=== PATIENT | female | born 1995 | race American Indian/Alaskan Native ===

== ENCOUNTER 2016-12-21 19:33 | Outpatient (CLI) | payer MEDICAID, OTHER ==
[2016-12-21 21:30] VITALS: BP 121/70
[2016-12-22 00:12] LABS: Bacteria,Urine 2+ /HPF (Negative); Bilirubin,Urine NEG (Negative); Blood,Urine NEG (Negative); Ketones,Urine NEG (Negative); Leukocyte Esterase,Urine LG (Negative); Mucus,Urine 3+ /HPF; Nitrite,Urine NEG (Negative); Urobilinogen,Urine < 2.0 mg/dL (<2.0)
== END 2016-12-21 23:04 | disposition home or self-care (01) ==
LOC: EDSTATUS 21:08 → TRG 21:12
PROVIDERS: ATTEND Obstetrics & Gynecology
DX: O26.892 Other specified pregnancy related conditions, second trimester (principal); R11.0 Nausea; R25.2 Cramp and spasm; Z3A.22 22 weeks gestation of pregnancy
CPT/HCPCS: 81001

== ENCOUNTER 2020-07-02 13:11 | Observation (INO) | payer MEDICAID ==
[2020-07-02] MEDS ORDERED: DOCUSATE SODIUM 100 MG CAP PO PRN (14:24)
[2020-07-02] MEDS ORDERED: diphenhydrAMINE 25 MG CAP PO PRN (14:24)
[2020-07-02] MEDS ORDERED: ALUM-MAG HYDROXIDE-SIMETHICONE 200-200-20MG/5ML ORAL LIQD 30 ML PO PRN (14:24)
[2020-07-02] MEDS ORDERED: ACETAMINOPHEN 325 MG TAB PO PRN (14:24)
--- NOTE | 2020-07-02 14:24 | History and Physical Report ---
History of Present Illness Date of examination: 07/02/20 (Sent by [facility] d/t kumar, 33 wks twins) Date of admission: 07/02/2020 Chief complaint: Was sent by [facility] elvi/t kumar q 2 minutes during office visit. Twins, twin B severe IUGR History of present illness: Pt was having contractions every 2 minutes in at her [facility] visit. She was sent for steroids and fluids. Past History : 3 Term Births: 1 Premature Births: 0 Living Children: 1 Para: 1 Mult. Births: 0 Prev : 0 Prev. attempt? 0 Aborta: 1 Elect. Ab: 1 Spont. 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 of genital herpes: no Partner hx. of genital herpes: no Rash, Viral, or Febrile illness since last LMP? no Varicella/Chicken Pox Status: Immunized Genetic History Congenital Heart Defect: Mom: no Dad: no Tiffani Disease: Mom: no Dad: no Thalassemia Mom: no Dad: no Neural Tube Defect Mom: no Dad: no Down's Syndrome Mom: no Dad: no Praful-Sachs Mom: no Dad: no Sickle Cell Disease/Trait Mom: no Dad: no Hemophilia Mom: no Dad: no Muscular Dystrophy Mom: no Dad: no Cystic Fibrosis Mom: no Dad: no Owsley Chorea Mom: no Dad: no Mental Retardation Mom: no Dad: no Fragile X Mom: no Dad: no Other Genetic/Chromosomal Disorder Mom: no Dad: no Child w/other defect Mom: no Dad: no Enviromental Exposures Xray Exposure: no Medication, drug, or alcohol use since LMP: no Chemical/Other Exposure: no Exposure to Cat Liter: no Hx of Parvovirus (Fifth Disease): no Occupational Exposure to Children: none Active Medications (reviewed today): None Current Allergies (reviewed today): No known allergies Past History Past Medical History: no pertinent history Past Surgical History: other (Hernia repair as a child.) Family/Genetic History: none Social history: no significant social history - Obstetrical History Expected Date of Delivery: 08/15/20 Actual Gestation: 33 Week(s) 5 Day(s) : 3 Para: 1 Hx # Term Pregnancies: 1 Number of Pregnancies: 0 Spontaneous Abortions: 0 Induced : 1 Number of Living Children: 1 Medications and Allergies Allergies Allergy/AdvReac Type Severity Reaction Status Date / Time No Known Allergies Allergy Unverified 07/02/20 14:31 Home Medications Medication Instructions Recorded Confirmed Last Taken Type Fluconazole [Diflucan TAB] 150 mg PO ONCE #3 tablet 02/18/14 12/21/16 Unknown Rx metroNIDAZOLE [Flagyl] 500 mg PO BID #14 tablet 02/18/14 12/21/16 Unknown Rx Doxylamine Succinate/Vit B6 1 each PO BID #30 tablet. 01/30/20 Unknown Rx [Dania Calderon 10-10 mg Tablet] Nitrofurantoin [place]/M-Cryst 100 mg PO Q12HR #14 capsule 01/30/20 Unknown Rx [Macrobid CAP] Review of Systems All systems: negative - Vital Signs Vital signs: Vital Signs Pulse BP 73 118/58 07/02/20 14:18 07/02/20 14:18 Temp Pulse Resp BP Pulse Ox 69 118/58 99 07/02/20 14:19 07/02/20 14:18 07/02/20 14:19 - Physical Exam Breasts: Positive: deferred Cardiovascular: Regular rate Lungs: Positive: Normal air movement Abdomen: Positive: normal appearance, soft Genitourinary (Female): Positive: normal external genitalia, normal perenium Vulva: both: normal Vagina: Positive: normal moisture. Negative: discharge Cervix: Negative: lesion, discharge Uterus: Positive: normal size, normal contour Adnexa: both: normal Anus/Rectum: Positive: normal perianal skin, heme negative. Negative: rectal mass, hemorrhoids Extremities: Positive: normal Deep Tendon Reflex Grade: Normal +2 - Obstetrical FHR: category 1 (X 2) Uterine Contraction Monitor Mode: External Cervical Dilatation: 0.5 Cervical Effacement Percentage: 50 station: -3 Uterine Contraction Pattern: Irregular Uterine Tone Measurement Phase: Resting Uterine Contraction Intensity: Mild Results Result Diagrams: 07/02/20 15:09 All other labs normal. GBS UNKNOWN HBsAg Screen Negative Negative *1 RPR Non Reactive Non Reactive *2 Rubella Antibodies, IgG 2.12 index Immune >0.99 *3 Non-immune <0.90 Equivocal 0.90 - 0.99 Immune >0.99 ABO Grouping A *4 Rh Factor Positive *5 Please note: Prior records for this patient's ABO / Rh type are not available for additional verification. Antibody Screen Negative Negative *6 Tests: (2) HIV Ag/Ab with Reflex ([id number]) HIV Screen 4th Generation wRfx Non Reactive Non Reactive *31 Tests: (3) HCV Ab w/Rflx to Verification ([id number]) ! HCV Ab <0.1 s/co ratio 0.0-0.9 *32 Tests: (4) Comment: ([id number]) ! Comment: SPRCS *33 Non reactive HCV antibody screen is consistent with no HCV infection, unless recent infection is suspected or other evidence exists to indicate HCV infection. Assessment and Plan A: 24 y.o. @ 33 + weeks, twins, ctxs. Cervical exam FT/50/-3, soft. P: Admit to labor and delivery for observation. IV fluids. Steroids. - Patient Problems (1) labor in third trimester Onset Date: ~07/02/20 Current Visit: Yes Status: Acute Qualifiers: labor delivery status: without delivery Qualified Code(s): O60.03 - labor without delivery, third trimester Plan to address problem: IV fluids, steroids. (2) with 26 to 33 completed weeks gestation Onset Date: ~07/02/20 Current Visit: Yes Status: Acute Plan to address problem: IV fluids, steroids per AMF. (3) Antepartum twin Onset Date: ~07/02/20 Current Visit: Yes Status: Acute Qualifiers: Multiple gestation type: dichorionic and diamniotic Qualified Code(s): O30.049 - Twin , dichorionic/diamniotic, unspecified trimester Plan to address problem: EFM to monitor status.
[2020-07-02] MEDS: LACTATED RINGERS 1,000 ML IV SCH ×3 (14:54→23:16)
[2020-07-02] MEDS: BETAMET ACET/BETAMET NA PH 6 MG/ML INJ 5 ML MDV IM SCH (15:18)
[2020-07-02 15:54] LABS: Basophils % (Auto) 0.2 % (0.0-1.8); Eosinophils # (Auto) 0.1 K/mm3 (0.0-0.4); Eosinophils % (Auto) 1.5 % (0.0-4.3); Hematocrit 33.3 % (30.3-42.9); Lymphocytes # (Auto) 1.5 K/mm3 (1.2-5.4); Lymphocytes % (Auto) 17.5 % (13.4-35.0); Mean Corpuscular HGB Conc 33 % (30-34); Mean Corpuscular Volume 82 fl (79-97); Monocytes % (Auto) 11.2 % (0.0-7.3); Platelet Count 179 K/mm3 (140-440); Red Blood Count 4.05 M/mm3 (3.65-5.03); Red Cell Distribution Width 14.7 % (13.2-15.2)
[2020-07-02] MEDS ORDERED: TERBUTALINE 1 MG/1 ML INJ SUB-Q ONE (17:19)
[2020-07-02] MEDS ORDERED: TERBUTALINE 1 MG/1 ML INJ ONE (17:20)
--- NOTE | 2020-07-02 17:23 | Event Note ---
Date: 07/02/20 (Pt feeling ctxs.) Pt states that she is feeling ctxs. Irregular ctxs noted on monitor. Will order terb X1.
--- NOTE | 2020-07-02 20:21 | Progress Note ---
Assessment and Plan - Patient Problems (1) 33 weeks gestation of Current Visit: Yes Status: Acute (2) Antepartum twin Onset Date: ~07/02/20 Current Visit: Yes Status: Acute Qualifiers: Multiple gestation type: dichorionic and diamniotic Qualified Code(s): O30.049 - Twin , dichorionic/diamniotic, unspecified trimester Plan to address problem: Vtx/ breech per AMFM US from today Will attempt to obtain report tomorrow Consult [facility] ordered Discussed possible c/s with patient if Twin B remains breech. (3) labor in third trimester Onset Date: ~07/02/20 Current Visit: Yes Status: Acute Qualifiers: labor delivery status: without delivery Qualified Code(s): O60.03 - labor without delivery, third trimester Plan to address problem: Patient continues to complain of contractions, will start Procardia for tocolysis. (The overall evidence suggests that when tocolysis is used for short- term prolongation, calcium channel blockers or nonsteroidal antiinflammatory drugs should be first-line treatment (Multifetal Gestations: Twin, Triplet, and Higher-Order Multifetal Pregnancies, Practice Bulletin, Number 169, May 2016) GBS obtained She's received the first dose of Celestone at 1515 today, 2nd dose scheduled for tomorrow. (4) IUGR (intrauterine growth restriction) Current Visit: Yes Status: Acute Plan to address problem: Continuous monitoring Subjective - Subjective Date of service: 07/02/20 Principal diagnosis: IUP@33 5/7weeks Twins di/di IUGRx2, PTC Patient reports: movement normal, contractions, no loss of fluid, no vaginal bleeding Objective - Vital Signs Vital Signs: Vital Signs - 12hr 07/02/20 07/02/20 07/02/20 14:18 14:19 14:24 Temperature Pulse Rate 73 69 77 Blood Pressure 118/58 O2 Sat by Pulse 99 99 Oximetry 07/02/20 07/02/20 07/02/20 14:29 14:34 14:39 Temperature Pulse Rate 72 73 74 Blood Pressure O2 Sat by Pulse 99 100 99 Oximetry 07/02/20 07/02/20 07/02/20 14:44 14:45 14:49 Temperature 99.1 F Pulse Rate 75 77 Blood Pressure O2 Sat by Pulse 99 100 Oximetry 07/02/20 07/02/20 07/02/20 14:54 15:00 15:05 Temperature Pulse Rate 85 82 74 Blood Pressure O2 Sat by Pulse 100 99 100 Oximetry 07/02/20 07/02/20 07/02/20 15:10 15:15 15:20 Temperature Pulse Rate 84 86 79 Blood Pressure O2 Sat by Pulse 99 99 99 Oximetry 07/02/20 07/02/20 07/02/20 15:25 15:30 15:35 Temperature Pulse Rate 76 82 78 Blood Pressure O2 Sat by Pulse 100 100 100 Oximetry 07/02/20 07/02/20 07/02/20 15:40 15:45 15:50 Temperature Pulse Rate 79 71 88 Blood Pressure O2 Sat by Pulse 99 99 100 Oximetry 07/02/20 07/02/20 07/02/20 15:55 16:00 16:05 Temperature Pulse Rate 84 70 81 Blood Pressure O2 Sat by Pulse 98 100 99 Oximetry 07/02/20 07/02/20 07/02/20 16:10 16:15 16:20 Temperature Pulse Rate 78 79 69 Blood Pressure O2 Sat by Pulse 99 100 100 Oximetry 07/02/20 07/02/20 07/02/20 16:25 16:30 16:35 Temperature Pulse Rate 90 77 82 Blood Pressure O2 Sat by Pulse 100 100 100 Oximetry 07/02/20 07/02/20 07/02/20 16:40 16:45 16:50 Temperature Pulse Rate 78 83 80 Blood Pressure O2 Sat by Pulse 100 99 99 Oximetry 07/02/20 07/02/20 07/02/20 16:55 17:00 17:05 Temperature Pulse Rate 81 82 96 H Blood Pressure O2 Sat by Pulse 99 99 99 Oximetry 07/02/20 07/02/20 07/02/20 17:10 17:15 17:20 Temperature Pulse Rate 105 H 85 83 Blood Pressure O2 Sat by Pulse 99 100 99 Oximetry 07/02/20 07/02/20 07/02/20 17:25 17:30 17:35 Temperature Pulse Rate 74 94 H 113 H Blood Pressure O2 Sat by Pulse 100 99 99 Oximetry 07/02/20 07/02/20 07/02/20 17:40 17:45 17:50 Temperature Pulse Rate 107 H 121 H 109 H Blood Pressure O2 Sat by Pulse 99 99 99 Oximetry 07/02/20 07/02/20 07/02/20 17:55 18:00 18:05 Temperature Pulse Rate 120 H 112 H 110 H Blood Pressure O2 Sat by Pulse 100 99 98 Oximetry 07/02/20 07/02/20 07/02/20 18:10 18:15 18:20 Temperature Pulse Rate 113 H 103 H 111 H Blood Pressure O2 Sat by Pulse 99 100 100 Oximetry 07/02/20 07/02/20 07/02/20 18:25 18:30 18:35 Temperature Pulse Rate 112 H 108 H 93 H Blood Pressure O2 Sat by Pulse 99 99 100 Oximetry 07/02/20 07/02/20 07/02/20 18:40 18:45 18:50 Temperature Pulse Rate 101 H 96 H 93 H Blood Pressure O2 Sat by Pulse 100 100 99 Oximetry 07/02/20 07/02/20 07/02/20 18:55 19:00 19:05 Temperature Pulse Rate 95 H 94 H 99 H Blood Pressure O2 Sat by Pulse 99 99 99 Oximetry 07/02/20 07/02/20 07/02/20 19:10 19:15 19:19 Temperature Pulse Rate 103 H 97 H 91 H Blood Pressure 124/69 O2 Sat by Pulse 99 100 Oximetry 07/02/20 07/02/20 07/02/20 19:20 19:25 19:30 Temperature Pulse Rate 105 H 97 H 108 H Blood Pressure O2 Sat by Pulse 99 100 99 Oximetry 07/02/20 07/02/20 07/02/20 19:35 19:40 20:02 Temperature Pulse Rate 86 89 92 H Blood Pressure O2 Sat by Pulse 100 99 100 Oximetry 07/02/20 07/02/20 20:07 20:12 Temperature Pulse Rate 86 84 Blood Pressure O2 Sat by Pulse 98 99 Oximetry - Exam Breasts: deferred Cardiovascular: Regular rate Lungs: Normal air movement Abdomen: Present: soft. Absent: tenderness Vulva: both: normal Uterus: Present: fundal height above umbilicus FHR: category 1 (x2) Uterine Contraction Monitor Mode: External Cervical Dilatation: 0.5 Cervical Effacement Percentage: 25 station: -3 Uterine Contraction Pattern: Irregular Extremities: normal - Labs Labs: Abnormal Labs 07/02/20 15:09 MCH 27 L [place] % (Auto) 11.2 H [place] # (Auto) 1.0 H Laboratory Results - last 24 hr 07/02/20 07/02/20 07/02/20 15:09 15:09 15:09 WBC 8.8 RBC 4.05 Hgb 11.0 Hct 33.3 MCV 82 MCH 27 L MCHC 33 RDW 14.7 Plt Count 179 Lymph % (Auto) 17.5 [place] % (Auto) 11.2 H Eos % (Auto) 1.5 Baso % (Auto) 0.2 Lymph # (Auto) 1.5 [place] # (Auto) 1.0 H Eos # (Auto) 0.1 Baso # (Auto) 0.0 Seg Neutrophils % 69.6 Seg Neutrophils # 6.1 Syphilis IgG Antibody Nonreactive Blood Type A POSITIVE Antibody Screen Negative
[2020-07-02] MEDS ORDERED: NIFEdipine*For Tocolysis only* 10 MG CAPSULE PO ONE (21:12)
[2020-07-03] MEDS: NIFEdipine*For Tocolysis only* 10 MG CAPSULE PO SCH ×2 (02:11→11:42)
[2020-07-03] MEDS ORDERED: PRENATAL VIT27-FE FUMARATE-FOLIC ACID VIT TAB PO SCH (10:00)
--- NOTE | 2020-07-03 10:26 | Progress Note ---
Assessment and Plan - Patient Problems (1) uterine contractions in third trimester, antepartum Current Visit: Yes Status: Acute Plan to address problem: -contractions seemed to have resolved. Pt desires d/c hoem -will await recommendations by MF and plan for d/c home today. (2) 33 weeks gestation of Current Visit: Yes Status: Acute (3) Antepartum twin Onset Date: ~07/02/20 Current Visit: Yes Status: Acute Qualifiers: Multiple gestation type: dichorionic and diamniotic Qualified Code(s): O30.049 - Twin , dichorionic/diamniotic, unspecified trimester (4) IUGR (intrauterine growth restriction) Current Visit: Yes Status: Acute Subjective - Subjective Date of service: 07/03/20 Principal diagnosis: IUP@33 6/7weeks Twins di/di IUGRx2, PTC Interval history: Pt doing well this am and looking foward to going home. states she no longer is having pain. I d/w that she will have follow up with MFM and get her second does of BMZ at 1500pm prior to d/c to home. She expressed understanding and agrees with plan of care. Pt has been on procardia which has helped with her contractions. I d/w that she may be d/c home on this medication pending recommendations by MFM. Pt expressed understanding and agrees with plan of care. Patient reports: movement normal, contractions, no loss of fluid, no vaginal bleeding Objective - Vital Signs Vital Signs: Vital Signs - 12hr 07/02/20 07/02/20 07/02/20 22:22 22:27 22:32 Temperature Pulse Rate 110 H 114 H 114 H Respiratory Rate Blood Pressure O2 Sat by Pulse 100 100 100 Oximetry 07/02/20 07/02/20 07/02/20 22:37 22:42 22:47 Temperature Pulse Rate 109 H 111 H 105 H Respiratory Rate Blood Pressure O2 Sat by Pulse 99 100 99 Oximetry 07/02/20 07/02/20 07/02/20 22:52 22:57 23:02 Temperature Pulse Rate 102 H 96 H 103 H Respiratory Rate Blood Pressure O2 Sat by Pulse 99 99 100 Oximetry 07/02/20 07/02/20 07/02/20 23:07 23:12 23:17 Temperature Pulse Rate 101 H 101 H 98 H Respiratory Rate Blood Pressure O2 Sat by Pulse 100 99 99 Oximetry 07/02/20 07/02/20 07/02/20 23:22 23:27 23:32 Temperature Pulse Rate 93 H 92 H 91 H Respiratory Rate Blood Pressure O2 Sat by Pulse 99 99 100 Oximetry 07/02/20 07/02/20 07/02/20 23:37 23:53 23:58 Temperature Pulse Rate 96 H 64 106 H Respiratory Rate Blood Pressure O2 Sat by Pulse 99 92 99 Oximetry 07/03/20 07/03/20 07/03/20 00:03 00:08 00:13 Temperature Pulse Rate 105 H 104 H 99 H Respiratory Rate Blood Pressure O2 Sat by Pulse 99 98 99 Oximetry 07/03/20 07/03/20 07/03/20 00:18 00:23 00:28 Temperature Pulse Rate 101 H 97 H 101 H Respiratory Rate Blood Pressure O2 Sat by Pulse 99 99 99 Oximetry 07/03/20 07/03/20 07/03/20 00:33 00:38 00:43 Temperature Pulse Rate 100 H 94 H 87 Respiratory Rate Blood Pressure O2 Sat by Pulse 98 98 98 Oximetry 07/03/20 07/03/20 07/03/20 00:48 00:53 00:58 Temperature Pulse Rate 95 H 104 H 109 H Respiratory Rate Blood Pressure O2 Sat by Pulse 98 98 99 Oximetry 07/03/20 07/03/20 07/03/20 01:03 01:08 02:13 Temperature Pulse Rate 92 H 94 H 80 Respiratory Rate Blood Pressure O2 Sat by Pulse 98 98 100 Oximetry 07/03/20 07/03/20 07/03/20 02:18 02:23 02:28 Temperature Pulse Rate 82 91 H 86 Respiratory Rate Blood Pressure O2 Sat by Pulse 97 97 97 Oximetry 07/03/20 07/03/20 07/03/20 02:33 02:38 02:43 Temperature Pulse Rate 78 89 89 Respiratory Rate Blood Pressure O2 Sat by Pulse 97 98 97 Oximetry 07/03/20 07/03/20 07/03/20 02:48 02:53 02:58 Temperature Pulse Rate 80 75 95 H Respiratory Rate Blood Pressure O2 Sat by Pulse 97 98 99 Oximetry 07/03/20 07/03/20 07/03/20 03:03 03:08 03:13 Temperature Pulse Rate 93 H 89 86 Respiratory Rate Blood Pressure O2 Sat by Pulse 98 98 99 Oximetry 07/03/20 07/03/20 07/03/20 03:18 03:23 03:28 Temperature Pulse Rate 70 67 84 Respiratory Rate Blood Pressure O2 Sat by Pulse 98 99 98 Oximetry 07/03/20 07/03/20 07/03/20 03:33 03:38 03:43 Temperature Pulse Rate 83 82 83 Respiratory Rate Blood Pressure O2 Sat by Pulse 97 98 98 Oximetry 07/03/20 07/03/20 07/03/20 03:48 03:53 03:58 Temperature Pulse Rate 86 84 88 Respiratory Rate Blood Pressure O2 Sat by Pulse 97 99 99 Oximetry 07/03/20 07/03/20 07/03/20 04:03 04:08 04:13 Temperature Pulse Rate 98 H 75 78 Respiratory Rate Blood Pressure O2 Sat by Pulse 98 98 98 Oximetry 07/03/20 07/03/20 07/03/20 04:18 04:23 04:28 Temperature Pulse Rate 74 73 67 Respiratory Rate Blood Pressure O2 Sat by Pulse 98 100 99 Oximetry 07/03/20 07/03/20 07/03/20 04:33 04:38 04:43 Temperature Pulse Rate 82 76 73 Respiratory Rate Blood Pressure O2 Sat by Pulse 99 98 98 Oximetry 07/03/20 07/03/20 07/03/20 04:48 04:53 04:58 Temperature Pulse Rate 64 81 67 Respiratory Rate Blood Pressure O2 Sat by Pulse 99 99 99 Oximetry 07/03/20 07/03/20 07/03/20 06:56 07:01 07:06 Temperature Pulse Rate 101 H 124 H 85 Respiratory Rate Blood Pressure O2 Sat by Pulse 99 100 99 Oximetry 07/03/20 07/03/20 07/03/20 07:11 07:16 07:21 Temperature Pulse Rate 91 H 68 72 Respiratory Rate Blood Pressure O2 Sat by Pulse 99 100 99 Oximetry 07/03/20 07/03/20 07/03/20 07:26 07:29 07:30 Temperature 98.4 F Pulse Rate 90 98 H Respiratory 18 Rate Blood Pressure 114/81 O2 Sat by Pulse 100 Oximetry 07/03/20 07/03/20 07/03/20 07:31 09:06 09:11 Temperature Pulse Rate 93 H 98 H 86 Respiratory Rate Blood Pressure O2 Sat by Pulse 99 100 100 Oximetry 07/03/20 07/03/20 07/03/20 09:16 09:21 09:26 Temperature Pulse Rate 91 H 85 83 Respiratory Rate Blood Pressure O2 Sat by Pulse 99 99 100 Oximetry 07/03/20 07/03/20 07/03/20 09:31 09:36 09:41 Temperature Pulse Rate 94 H 92 H 90 Respiratory Rate Blood Pressure O2 Sat by Pulse 100 100 99 Oximetry 07/03/20 07/03/20 07/03/20 09:46 09:51 09:56 Temperature Pulse Rate 90 83 84 Respiratory Rate Blood Pressure O2 Sat by Pulse 100 100 100 Oximetry 07/03/20 07/03/20 10:07 10:12 Temperature Pulse Rate 82 92 H Respiratory Rate Blood Pressure O2 Sat by Pulse 99 100 Oximetry - Exam Lungs: Normal air movement Abdomen: Present: normal appearance, soft. Absent: distention, tenderness, guarding FHR: category 1 Uterine Contraction Pattern: Absent - Labs Labs: Abnormal Labs 07/02/20 15:09 MCH 27 L [place] % (Auto) 11.2 H [place] # (Auto) 1.0 H Laboratory Results - last 24 hr 07/02/20 07/02/20 07/02/20 15:09 15:09 15:09 WBC 8.8 RBC 4.05 Hgb 11.0 Hct 33.3 MCV 82 MCH 27 L MCHC 33 RDW 14.7 Plt Count 179 Lymph % (Auto) 17.5 [place] % (Auto) 11.2 H Eos % (Auto) 1.5 Baso % (Auto) 0.2 Lymph # (Auto) 1.5 [place] # (Auto) 1.0 H Eos # (Auto) 0.1 Baso # (Auto) 0.0 Seg Neutrophils % 69.6 Seg Neutrophils # 6.1 Syphilis IgG Antibody Nonreactive Blood Type A POSITIVE Antibody Screen Negative
[2020-07-03 13:23] VITALS: BP 121/61
[2020-07-03] MEDS: BETAMET ACET/BETAMET NA PH 6 MG/ML INJ 5 ML MDV IM SCH (14:30)
--- NOTE | 2020-07-03 14:35 | Discharge Summary ---
Providers - Providers Date of Admission: 07/02/20 14:24 Date of discharge: 07/03/20 Attending physician: MAYELIN ABDI 07/03/20 07:00 Consult to Physician [CONS] Routine Comment: Consulting Provider: JENNIFER MENESES Physician Instructions: Reason For Exam: twins, PTL, IUGR Primary care physician: MAYELIN ABDI Hospitalization Reason for admission: other ( contractions) Hospital course: Pt admitted for observation due to contractions. Pt contractions have resolved and she just c/o round ligament pain at this time. Pt s/p BMZ x1 dose and second does being given at this time. Pt seen by mfm who agrees pt can be d/c home with f/u with MFM on Sunday07/05/2020. Bed rest until visit Sunday. Pre term Labor precautions given. Condition at discharge: Good Disposition: DC-01 TO HOME OR SELFCARE - Discharge Diagnoses (1) uterine contractions in third trimester, antepartum Status: Acute (2) 33 weeks gestation of Status: Acute (3) Antepartum twin Status: Acute Qualifiers: Multiple gestation type: dichorionic and diamniotic Qualified Code(s): O30.049 - Twin , dichorionic/diamniotic, unspecified trimester (4) IUGR (intrauterine growth restriction) Status: Acute Plan - Provider Discharge Summary Additional instructions: [] Smoking cessation referral if applicable(refer to patient education folder for contact #) [] Refer to [facility] Booklet Call your doctor immediately for: * Fever > 100.5 * Heavy vaginal bleeding ( >1 pad per hour) * Severe persistent headache * Shortness of breath * Reddened, hot, painful area to leg or breast * Drainage or odor from incision. * Keep incision clean and dry at all times and follow doctor's instructions regarding bathing/showering - Follow up plan Follow up: MAYELIN ABDI MD [Primary Care Provider] - 7 Days
== END 2020-07-03 14:30 | disposition home or self-care (01) ==
LOC: TRG 13:11 → APU 13:11 → LD 13:48 → UNDODISOB 14:24 → TRG 14:24
PROVIDERS: ADMIT Obstetrics & Gynecology; ATTEND Obstetrics & Gynecology
DX: O36.5932 Maternal care for other known or suspected poor fetal growth, third trimester, fetus 2 (principal); Z20.828 Contact with and (suspected) exposure to other viral communicable diseases; O30.043 Twin pregnancy, dichorionic/diamniotic, third trimester; O60.03 Preterm labor without delivery, third trimester; Z3A.33 33 weeks gestation of pregnancy; Z98.890 Other specified postprocedural states
CPT/HCPCS: 36415; 85025; 86592; 86850; 86900; 86901; 87116; 96360; 96361; 96372; G0378; J0702; J3105; J7120; U0003

== ENCOUNTER 2020-07-13 13:31 | Outpatient (CLI) | payer MEDICAID ==
[2020-07-13] MEDS ORDERED: LACTATED RINGERS 500 ML IV ONE (14:00)
[2020-07-13 14:37] VITALS: BP 117/57
--- NOTE | 2020-07-13 17:28 | Ultrasound Report ---
ULTRASOUND OBSTETRIC LIMITED ULTRASOUND BIOPHYSICAL PROFILE INDICATION / CLINICAL INFORMATION: nonreassuring FHT, decreased FM. Clinical Gestational Age (GA): 35.2 weeks.days COMPARISON: 01/30/2020. FINDINGS: There are twin intrauterine gestations, indicated by Baby A and Baby B. BABY A: BREATHING MOVEMENT = 2 GROSS BODY MOVEMENT = 2 TONE = 2 QUALITATIVE AMNIOTIC FLUID VOLUME = 2 TOTAL BIOPHYSICAL SCORE = 8/8 HEART RATE (beats per minute): 137 ADDITIONAL FINDINGS: None. BABY B: BREATHING MOVEMENT = 2 GROSS BODY MOVEMENT = 2 TONE = 2 QUALITATIVE AMNIOTIC FLUID VOLUME = 2 TOTAL BIOPHYSICAL SCORE = 8/8 HEART RATE (beats per minute): 156 ADDITIONAL FINDINGS: None. IMPRESSION: 1. Baby A Biophysical Score = 8/8 2. Baby B Biophysical Score = 8/8 Signer Name: Simon Yost MD Signed: 07/13/2020 5:23 PM Workstation Name: [id number])-[id number]
--- NOTE | 2020-07-14 06:24 | Ultrasound Report ---
Biophysical profile Ultrasound HISTORY: NONREASSURING FHT,DECREASED FM. TECHNIQUE: Grayscale and color imaging performed. COMPARISON: No recent comparison exam FINDINGS: This report is linked to twin A. Fetus received a score of 2 out of 2 for breathing, movement, posture/tone, and qualitative ROSARIO. Tota l score was 8 out of 8 and heart rate was 137 bpm. IMPRESSION: Normal BPP. Signer Name: Kory Trotter MD Signed: 07/14/2020 6:19 AM Workstation Name: [id number]
== END 2020-07-13 17:20 | disposition home or self-care (01) ==
LOC: APU 13:31 → TRG 13:31 → APU 15:23 → TRG 17:20
PROVIDERS: ATTEND Obstetrics & Gynecology
DX: O36.8131 Decreased fetal movements, third trimester, fetus 1 (principal); O36.8132 Decreased fetal movements, third trimester, fetus 2; Z3A.35 35 weeks gestation of pregnancy
CPT/HCPCS: 76819

== ENCOUNTER 2021-08-18 16:04 | Emergency (ER) | payer MEDICAID ==
[2021-08-18] MEDS ORDERED: ACETAMINOPHEN 500 MG TAB PO ONE (17:06)
--- NOTE | 2021-08-18 18:26 | Event Note ---
Date of service: 08/18/21 Face to Face: For this encounter I have reviewed the PA/NETWORK DESKTOP SUPPORT SPECIALIST documentation, treatment plan, medical decision making, and I had face to face time with this patient. Patient presented with headache as well as URI symptoms. She has no known coronavirus exposure recently, but her sister had COVID several months ago. Patient has had generalized malaise with cough and congestion. She has had difficulty breathing. On exam, patient is in no distress. Lungs are clear. Heart is regular. She does not appear to be septic or toxic. She has no meningeal signs. It is likely this represents acute COVID infection. Patient to be managed as an outpatient.
--- NOTE | 2021-08-18 18:29 | Emergency Department Report ---
- General Chief Complaint: Upper Respiratory Infection Stated Complaint: COLD Time Seen by Provider: 08/18/21 18:05 Source: patient Mode of arrival: Ambulatory Limitations: No Limitations - History of Present Illness Initial Comments: Patient is a 26-year-old female presents emergency room complaints of fever that began 2 days ago. She has associated chills, dry cough, headache. She denies any body aches, vomiting, diarrhea, shortness of breath, chest pain, sore throat, ear pain. No past medical history. No allergies to medications. She denies any known sick contacts. She states that she did travel to [place] for a last month. She has not been vaccinated for COVID-19. She has not been tested for COVID-19 since becoming sick. She states that she uses Depo-Provera for control and has not missed any doses. - Related Data Previous Rx's Medication Instructions Recorded Last Taken Type Fluconazole [Diflucan TAB] 150 mg PO ONCE #3 tablet 02/18/14 Unknown Rx metroNIDAZOLE [Flagyl] 500 mg PO BID #14 tablet 02/18/14 Unknown Rx Doxylamine Succinate/Vit B6 1 each PO BID #30 tablet. 01/30/20 Unknown Rx [Dania Calderon 10-10 mg Tablet] Nitrofurantoin [place]/M-Cryst 100 mg PO Q12HR #14 capsule 01/30/20 Unknown Rx [Macrobid CAP] Ibuprofen [Motrin 800 MG tab] 800 mg PO TID PRN #30 tablet 07/23/20 Unknown Rx Lidocain2.5%/Prilocai2.5% [Emla] 5 gm TP ONCE #1 tube 07/23/20 Unknown Rx oxyCODONE /ACETAMINOPHEN [Percocet 1 - 2 tab PO Q6HR PRN #14 tablet 07/23/20 Unknown Rx 5/325 mg] Acetaminophen [Tylenol] 650 mg PO Q8HR PRN #20 cap 08/18/21 Unknown Rx Benzonatate [Tessalon Perles] 100 mg PO Q8HR PRN #12 cap 08/18/21 Unknown Rx guaiFENesin ER [Mucinex ER] 600 mg PO Q12H #14 tab 08/18/21 Unknown Rx Allergies Allergy/AdvReac Type Severity Reaction Status Date / Time No Known Allergies Allergy Verified 08/18/21 16:51 ED Review of Systems ROS: Stated complaint: COLD Other details as noted in HPI Comment: All other systems reviewed and negative ED Past Medical Hx - Past Medical History Hx Hypertension: Yes (2017) Hx Heart Attack/AMI: No Hx Congestive Heart Failure: No Hx Diabetes: No Hx Deep Vein Thrombosis: No Hx Liver Disease: No Hx Renal Disease: No Hx Sickle Cell Disease: No Hx Seizures: No Hx Asthma: No Hx COPD: No Hx HIV: No - Surgical History Hx Pacemaker: No Hx Internal Defibrillator: No Additional Surgical History: umbilical hernia C SECTION - Social History Smoking Status: Never Smoker - Medications Home Medications: Home Medications Medication Instructions Recorded Confirmed Last Taken Type Fluconazole [Diflucan TAB] 150 mg PO ONCE #3 tablet 02/18/14 07/23/20 Unknown Rx metroNIDAZOLE [Flagyl] 500 mg PO BID #14 tablet 02/18/14 07/23/20 Unknown Rx Doxylamine Succinate/Vit B6 1 each PO BID #30 tablet. 01/30/20 07/23/20 Unknown Rx [Diclegis Dr 10-10 mg Tablet] Nitrofurantoin [place]/M-Cryst 100 mg PO Q12HR #14 capsule 01/30/20 07/23/20 Unknown Rx [Macrobid CAP] Ibuprofen [Motrin 800 MG tab] 800 mg PO TID PRN #30 tablet 07/23/20 Unknown Rx Lidocain2.5%/Prilocai2.5% [Emla] 5 gm TP ONCE #1 tube 07/23/20 Unknown Rx oxyCODONE /ACETAMINOPHEN [Percocet 1 - 2 tab PO Q6HR PRN #14 tablet 07/23/20 Unknown Rx 5/325 mg] Acetaminophen [Tylenol] 650 mg PO Q8HR PRN #20 cap 08/18/21 Unknown Rx Benzonatate [Tessalon Perles] 100 mg PO Q8HR PRN #12 cap 08/18/21 Unknown Rx guaiFENesin ER [Mucinex ER] 600 mg PO Q12H #14 tab 08/18/21 Unknown Rx ED Physical Exam - General Limitations: No Limitations General appearance: alert, in no apparent distress - Head Head exam: Present: atraumatic, normocephalic - Eye Eye exam: Present: normal appearance - ENT ENT exam: Present: mucous membranes moist - Neck Neck exam: Present: full ROM. Absent: meningismus - Respiratory Respiratory exam: Present: normal lung sounds bilaterally. Absent: respiratory distress, wheezes, rales, rhonchi, stridor, chest wall tenderness, accessory muscle use, decreased breath sounds, prolonged expiratory - Cardiovascular Cardiovascular Exam: Present: regular rate, normal rhythm, normal heart sounds. Absent: systolic murmur, diastolic murmur, rubs, gallop - Neurological Exam Neurological exam: Present: alert, oriented X3 - Psychiatric Psychiatric exam: Present: normal affect, normal mood - Skin Skin exam: Present: warm, dry, intact ED Course Vital Signs 08/18/21 08/18/21 16:56 19:52 Temperature 101.6 F H 99.3 F Pulse Rate 109 H 100 H Respiratory 20 16 Rate Blood Pressure 108/69 Blood Pressure 102/64 [Right] O2 Sat by Pulse 100 100 Oximetry ED Medical Decision Making - Lab Data Lab Results 08/18/21 Range/Units Unknown Influenza A (Rapid) Negative (Negative) Influenza B (Rapid) Negative (Negative) - Medical Decision Making Patient is a 26-year-old female presents emergency room complaints of fever that began 2 days ago. She has associated chills, dry cough, headache. She denies any body aches, vomiting, diarrhea, shortness of breath, chest pain, sore throat, ear pain. No past medical history. No allergies to medications. She denies any known sick contacts. She states that she did travel to [place] for a last month. She has not been vaccinated for COVID-19. She has not been tested for COVID-19 since becoming sick. She states that she uses Depo- Provera for control and has not missed any doses. Initial vitals with fever and tachycardia which improved upon repeat. Breath sounds are clear bilaterally, no wheezing, no rales, no rhonchi. Patient has no hypoxia. Rapid flu is negative. Patient is presenting with the symptoms during COVID-19 pandemic, discussed the possibility of COVID-19, discussed return precautions, discussed outpatient testing, discussed self quarantine in accordance with CDC guidelines. Discussed supportive care and symptomatic treatment and importance of oral hydration. Advised patient Please take medication as prescribed. Increase your fluid intake. Follow-up with your primary care doctor for reexamination. Return to emergency room for any new or worsening symptoms. Recommend outpatient COVID-19 testing and if positive please self quarantine in accordance with the CDC guidelines. Critical care attestation.: If time is entered above; I have spent that time in minutes in the direct care of this critically ill patient, excluding procedure time. ED Disposition Clinical Impression: URI (upper respiratory infection) Qualifiers: URI type: unspecified URI Qualified Code(s): J06.9 - Acute upper respiratory infection, unspecified Disposition: 01 HOME / SELF CARE / HOMELESS Is pt being admited?: No Does the pt Need Aspirin: No Condition: Stable Instructions: Viral Respiratory Infection Additional Instructions: Please take medication as prescribed. Increase your fluid intake. Follow-up with your primary care doctor for reexamination. Return to emergency room for any new or worsening symptoms. Recommend outpatient COVID-19 testing and if positive please self quarantine in accordance with the CDC guidelines. Prescriptions: guaiFENesin ER [Mucinex ER] 600 mg PO Q12H #14 tab Benzonatate [Tessalon Perles] 100 mg PO Q8HR PRN #12 cap PRN Reason: cough Acetaminophen [Tylenol] 650 mg PO Q8HR PRN #20 cap PRN Reason: fever/pain Referrals: VAUGHN XIAO MD [Primary Care Provider] - 3-5 Days [facility] [Provider Group] - 3-5 Days GIANLUCA LEON MD [Staff Physician] - 3-5 Days Time of Disposition: 18:37 Print Language: MONGOLIAN
[2021-08-18 19:54] VITALS: BP 102/64
== END 2021-08-18 19:52 | disposition home or self-care (01) ==
LOC: ED 16:04
DX: J06.9 Acute upper respiratory infection, unspecified (principal); Z79.899 Other long term (current) drug therapy
CPT/HCPCS: 87400; 99283